=== PATIENT | male | born 1940 | race Caucasian/White ===

== ENCOUNTER 2017-10-16 21:16 | Emergency (ER) | payer OTHER ==
[~2017-10-16] VITALS: Ht 160 cm; Wt 53.5 kg
[~2017-10-16 21:16] MED LIST: ASPI-COR81 M1 PO; ATORVASTATIN CA80 MG PO; BYSTOLIC5 MG PO; DOCUSATE CALCI100 MG PO; IRBESARTAN150 MG PO
[2017-10-16 21:21] VITALS: Ht 160 cm; Wt 53.5 kg
[2017-10-16 23:14] LABS: BASOPHIL % 0.3 % (0-2); PLATELET COUNT 262 x10^3mcL (130-400); RED CELL DISTRIBUTION WIDTH 13.2 % (11.5-14.5)
[2017-10-16 23:36] LABS: UA SPECIFIC GRAVITY <=1.005 (1.005-1.035); microscopic required? YES; urine erythrocyte NEGATIVE (NEGATIVE)
[2017-10-16 23:47] LABS: CALCIUM 9.1 mg/dL (8.5-10.1); CARBON DIOXIDE 25.6 mmol/L (21-32); CHLORIDE SERUM 98 mmol/L (98-107); CREATININE SERUM 1.3 mg/dL (0.7-1.3); GLUCOSE SERUM 106 mg/dL (74-106); POTASSIUM SERUM 3.7 mmol/L (3.5-5.1); SODIUM SERUM 135 mmol/L (136-145)
[2017-10-16 23:49] LABS: ALBUMIN 3.6 g/dL (3.4-5.0)
[2017-10-17 00:17] LABS: ALKALINE PHOSPHATASE 70 U/L (46-116); ALT/SGPT 31 U/L (16-63); AST/SGOT 21 U/L (15-37); BILIRUBIN TOTAL 0.5 mg/dL (0.20-1.00); CHOLESTEROL 241 mg/dL (<200); HDL CHOLESTEROL 57 mg/dL (40-60); TOTAL PROTEIN, SERUM 8.4 g/dL (6.4-8.2)
[2017-10-17 00:41] VITALS: BP 126/76
== END 2017-10-17 00:14 | disposition home or self-care (01) ==
LOC: ED 21:16
PROVIDERS: Emergency Medicine
DX: R10.31 Right lower quadrant pain (principal); R10.32 Left lower quadrant pain; J44.1 Chronic obstructive pulmonary disease with (acute) exacerbation; I71.4 Abdominal aortic aneurysm, without rupture; I10 Essential (primary) hypertension; F17.210 Nicotine dependence, cigarettes, uncomplicated; R35.8 Other polyuria; R06.02 Shortness of breath
CPT/HCPCS: 83880; 87804; 99406; J2270; J2405; J7030; J7613